=== PATIENT | female | born 1965 | race Caucasian/White ===

== ENCOUNTER 2021-05-27 09:13 | Outpatient (REF) | payer MEDICAID, SELFPAY ==
[2021-05-27 14:23] LABS: HCT 40.7 % (36.0-46.0); HGB 13.2 g/dL (11.2-15.7); MCH 29.8 pg (27.0-33.0); MCHC 32.4 % (32.0-36.0); MCV 91.9 fL (80-95); MPV 9.7 fL (8.0-11.0); Platelet Count 355 10^3/uL (130-400); RBC 4.43 10^6/uL (3.93-5.22); RDW 11.7 % (11.7-14.6); RDW-SD 39.3 fL; WBC 5.27 10^3/uL (4.4-10.8)
[2021-05-27 14:44] LABS: TSH (W/Ref FT4) 1.82 uIU/mL (0.36-3.74)
== END 2021-05-27 09:14 | disposition home or self-care (01) ==
LOC: NCHCN 09:13
PROVIDERS: PCP Nurse Practitioner Family; Visit Provider Registered Nurse
DX: F41.9 Anxiety disorder, unspecified (principal); R53.83 Other fatigue
CPT/HCPCS: 82306; 85027; 84443

== ENCOUNTER 2022-11-01 09:31 | Outpatient (REF) | payer MEDICAID, SELFPAY ==
[2022-11-01 15:16] LABS: HGB 13.9 g/dL (11.2-15.7); MCH 31.3 pg (27.0-33.0); MCHC 33.9 % (32.0-36.0); MCV 92 fL (80-95); MPV 9.6 fL (8.0-11.0); Platelet Count 325 10^3/uL (130-400); RBC 4.44 10^6/uL (3.93-5.22); RDW 11.5 % (11.7-14.6); RDW-SD 38.6 fL; WBC 5.32 10^3/uL (4.4-10.8)
[2022-11-01 15:39] LABS: ALT 19 U/L (14-59); AST 19 U/L (15-37); Albumin 4.2 g/dL (3.4-5.0); Alkaline Phosphatase 54 U/L (46-116); Anion Gap 7.4 mmol/L (3-11); BUN 17 mg/dL (7-18); Bilirubin, Total 0.8 mg/dL (0.2-1.0); CO2 29.6 mmol/L (21.0-32.0); CREATININE 0.9 mg/dL (0.55-1.02); Calcium 9.9 mg/dL (8.5-10.1); Chloride 103 mmol/L (98-107); Glucose 98 mg/dL (74-106); Potassium 4.6 mmol/L (3.5-5.1); Sodium 140 mmol/L (136-145); TSH (W/Ref FT4) 1.49 uIU/mL (0.36-3.74); Total Protein 7.8 g/dL (6.4-8.2)
== END 2022-11-01 09:32 | disposition home or self-care (01) ==
LOC: NCHCN 09:31
PROVIDERS: PCP Nurse Practitioner Family; Visit Provider Registered Nurse
DX: R07.89 Other chest pain (principal); N64.52 Nipple discharge; R53.83 Other fatigue; Z00.00 Encounter for general adult medical examination without abnormal findings
CPT/HCPCS: 80053; 85027; 84443

== ENCOUNTER 2023-07-04 16:04 | Outpatient (REF) | payer MEDICAID, SELFPAY ==
[2023-07-04 16:57] LABS: Calculated LDL 163 mg/dL (<100); Cholesterol 276 mg/dL (<200); HDL Cholesterol 97 mg/dL (40-60); TSH (W/Ref FT4) 1.37 uIU/mL (0.36-3.74); Triglyceride 82 mg/dL (<150)
== END 2023-07-04 16:05 | disposition home or self-care (01) ==
LOC: NCHCN 16:04
PROVIDERS: PCP Nurse Practitioner Family; Visit Provider Family Medicine
DX: R53.83 Other fatigue (principal); Z13.220 Encounter for screening for lipoid disorders
CPT/HCPCS: 80061; 84443